=== PATIENT | male | born 1990 | race Caucasian/White ===

== ENCOUNTER 2022-07-04 13:37 | Emergency (ER) | payer SELFPAY ==
[~2022-07-04] VITALS: Ht 177.8 cm; Wt 81.6 kg
[2022-07-04 13:40] VITALS: BP 125/74
[2022-07-04] MEDS ORDERED: BACITRACIN OINT 500 UNITS/GM PKT TP ONE ×2 (14:10→14:11)
[2022-07-04] MEDS ORDERED: NON ADHERENT DRESSING TP SCH (14:10)
[2022-07-04] MEDS: IBUPROFEN 600 MG TAB PO ONE ×2 (14:12→14:51)
--- NOTE | 2022-07-04 14:20 | NUR ---
SVITLANA FROM THE STREETS C/O 07/15 R FOOT PAIN AND R BIG TOE PAIN & NAIL FELL OFF & +PURULENT DRAINAGE. X1 WEEK. PT REPORTS BEING RELEASED FROM [facility]IDENT[facility] X1 WEEK AGO AND HAS BEEN WALKING THE STREETS SINCE. PT USED METH THIS AM.
--- NOTE | 2022-07-04 14:38 | NUR ---
PT TAKEN TO [facility].
[2022-07-04] MEDS ORDERED: BACI1PAC6 TP (16:00)
[2022-07-04] MEDS ORDERED: CEPH-588 PO (16:00)
--- NOTE | 2022-07-04 16:37 | NUR ---
ATTEMPTED TO D/C PT. PT NOT FOUND IN LOBBY/OUTSIDE. PT LEFT WITHOUT D/C PAPERS. RX OF BACITRACIN AND KEFLEX SENT TO [facility]. HOMLESS RESOURCE PACKET NOT GIVEN
== END 2022-07-04 16:37 | disposition home or self-care (01) ==
LOC: MED 13:37
DX: L08.9 Local infection of the skin and subcutaneous tissue, unspecified (principal); R03.0 Elevated blood-pressure reading, without diagnosis of hypertension; F15.90 Other stimulant use, unspecified, uncomplicated; Z79.899 Other long term (current) drug therapy
CPT/HCPCS: 73660; 99283